=== PATIENT | female | born 1960 | race African-American/Black ===

== ENCOUNTER 2023-11-17 11:27 | Inpatient (IN) | payer OTHER, SELFPAY ==
[2023-11-17] MEDS ORDERED: Pantoprazole 40 MG VIAL ONE ×2 (12:03→13:35)
[2023-11-17 12:22] LABS: #Basophils 0.03 10x3/uL (0.0-0.2); #Eosinphils Less than 0.03 10x3/uL (0.0-0.7); %Basophils 0.3 % (0.0-1.0); %Eosinophils 0.2 % (0.0-10.0); %Lymphocytes 17.6 % (21.0-51.0); %Monocytes 5.2 % (0.0-10.0); %Neutrophils 76.3 % (42.0-75.0); Hematocrit 42.9 % (36.0-47.0); Hemoglobin 14.4 g/dL (12.0-16.0); Mean Corpuscular HGB CONC 33.6 g/dL (32.0-36.0); Mean Corpuscular Hemoglobin 31.6 pg (27.0-31.0); Mean Corpuscular Volume 94.1 fL (78.0-98.0); Mean Platelet Volume 9.5 fL (7.4-10.4); Platelet Count 280 10x3/uL (130-400); RBC Distribution Width 13.8 % (11.5-14.5); Red Blood Cell (RBC) Count 4.56 mill/uL (4.20-5.40)
[2023-11-17] MEDS ORDERED: Iopamidol-370 76% 500 ML MDV (1 ML CHARGE) ONE (12:25)
[2023-11-17 12:31] LABS: ALT (SGPT) 15 U/L (8-55); AST (SGOT) 21 U/L (5-34); Albumin 4.2 g/dL (3.4-4.8); Alkaline Phosphatase 57 U/L (40-110); Anion Gap 15 mmol/L (10-20); BUN (Urea Nitrogen) 11 mg/dL (9.8-20.1); Bilirubin, Total 0.5 mg/dL (0.2-1.2); Calc. Creatinine Clearance 0 mL/min (70-130); Calcium 9.6 mg/dL (7.8-10.44); Carbon Dioxide 24 mmol/L (23-31); Chloride 106 mmol/L (98-107); Estimated GFR 57; Globulin 3.6 g/dL (2.4-3.5); Glucose 131 mg/dL (80-115); Potassium 3.5 mmol/L (3.5-5.1); Protein, Total 7.8 g/dL (5.8-8.1); Sodium 141 mmol/L (136-145)
[2023-11-17 12:46] LABS: INR-International Normal Ratio 1.1; Prothrombin Time 14.6 sec (12.0-14.7)
[2023-11-17 12:47] LABS: PTT 33.2 sec (22.9-36.1)
[2023-11-17] MEDS ORDERED: cefTRIAXone (ROCEPHIN) 1 GM VIAL ONE (13:43)
[2023-11-17] MEDS ORDERED: Sodium Chloride 0.9% 100 ML ONE ×2 (13:43→15:55)
[2023-11-17] MEDS ORDERED: Octreotide Acetate 500 MCG/ML VIAL ONE (13:43)
[2023-11-17] MEDS ORDERED: hydrALAZINE 20 MG/ML VIAL ONE ×2 (13:54→17:17)
[2023-11-17] MEDS ORDERED: Octreotide Acetate 1,250 MCG in Sodium Chloride 0.9% 250 ML 250 ML IVPB SCH (14:00)
[2023-11-17 14:42] LABS: Bacteria/HPF None Seen HPF (None Seen); Bilirubin Negative (Negative); Blood, Urine Negative (Negative); CAUTI Indications for Culture Dysuria,urgency,freq; Clarity Clear (Clear); Glucose, Urine (Dipstick) Normal (Negative); Ketone, Urine Negative (Negative); Leukocyte 25 Leu/uL (Negative); Nitrite Negative (Negative); Protein, Urine (Dipstick) 30 mg/dL (Neg-Trace); RBC/HPF 0-3 HPF (0-3); Specific Gravity, Urine 1.042 (1.002-1.036); Urobilinogen Normal mg/dL (Less than 2); pH, Urine 6.5 (5.0-9.0)
[2023-11-17 14:46] LABS: Urine Culture Reflex No No
[2023-11-17] MEDS ORDERED: Piperacillin/Tazobactam 4.5 GM VIAL ONE (15:54)
[2023-11-17 16:14] LABS: ALT (SGPT) 15 U/L (8-55); AST (SGOT) 20 U/L (5-34); Albumin 4.3 g/dL (3.4-4.8); Alkaline Phosphatase 59 U/L (40-110); Bilirubin, Direct 0.2 mg/dL (0.1-0.3); Bilirubin, Total 0.5 mg/dL (0.2-1.2); Protein, Total 7.5 g/dL (5.8-8.1)
[2023-11-17] MEDS ORDERED: Piperacillin/Tazobactam 3.375 GM in Sodium Chloride 0.9% 100 ML IVPB SCH (16:15)
[2023-11-17 17:36] LABS: Hep C IgG Ab Reflex HepC Qnt S/CO (NonReactive); Hep C Index 11.37 S/CO (0-0.79)
[2023-11-17 20:28] LABS: Hemoglobin 13.2 g/dL (12.0-16.0)
[2023-11-17 20:55] LABS: Lactic Acid 6.6 mmol/L (0.5-2.2)
[2023-11-17] MEDS: Acetaminophen 325 MG TAB PO SCH (21:04)
[2023-11-17] MEDS: Sodium Chloride 0.9% 1,000 ML IV SCH (21:06)
[2023-11-17] MEDS: Piperacillin/Tazobactam 3.375 GM in Sodium Chloride 0.9% 100 ML IVPB SCH (21:07)
[2023-11-17] MEDS: Pantoprazole DR 40 MG TAB PO SCH (21:08)
[2023-11-17] MEDS: Nicotine 14 MG PATCH TD SCH (21:40)
[2023-11-17 21:46] VITALS: BMI 20.7
[2023-11-17] MEDS: hydrALAZINE 20 MG/ML VIAL SLOW IVP PRN (23:39)
[2023-11-18 03:58] LABS: #Basophils 0.06 10x3/uL (0.0-0.2); %Basophils 0.6 % (0.0-1.0); %Lymphocytes 44.1 % (21.0-51.0); %Monocytes 5.8 % (0.0-10.0); %Neutrophils 46.3 % (42.0-75.0); Hematocrit 38.4 % (36.0-47.0); Hemoglobin 13.2 g/dL (12.0-16.0); Mean Corpuscular HGB CONC 34.4 g/dL (32.0-36.0); Mean Corpuscular Hemoglobin 32.2 pg (27.0-31.0); Mean Corpuscular Volume 93.7 fL (78.0-98.0); Mean Platelet Volume 9.2 fL (7.4-10.4); Platelet Count 234 10x3/uL (130-400)
[2023-11-18 05:12] LABS: Lactic Acid 1.6 mmol/L (0.5-2.2)
[2023-11-18 05:14] LABS: Anion Gap 12 mmol/L (10-20); BUN (Urea Nitrogen) 7 mg/dL (9.8-20.1); Calc. Creatinine Clearance 62 mL/min (70-130); Calcium 8.3 mg/dL (7.8-10.44); Carbon Dioxide 19 mmol/L (23-31); Chloride 113 mmol/L (98-107); Estimated GFR 76; Glucose 125 mg/dL (80-115); Potassium 3.2 mmol/L (3.5-5.1); Sodium 141 mmol/L (136-145)
[2023-11-18] MEDS: Lactated Ringer's 1,000 ML IV SCH (05:54)
[2023-11-18 08:00] VITALS: BMI 20.7
[2023-11-18] MEDS: Lisinopril 5 MG TAB PO SCH (08:42)
[2023-11-18 10:33] LABS: Hematocrit 37.1 % (36.0-47.0); Hemoglobin 12.4 g/dL (12.0-16.0)
[2023-11-18] MEDS ORDERED: Famotidine 20 MG TAB PO PRN (10:40)
[2023-11-18 10:52] LABS: Lactic Acid 3.5 mmol/L (0.5-2.2)
[2023-11-18] MEDS: Hydrochlorothiazide 25 MG TAB PO SCH (12:37)
[2023-11-18] MEDS: Sodium Chloride 0.45% 1,000 ML IV SCH (12:37)
[2023-11-18] MEDS: hydrALAZINE 20 MG/ML VIAL SLOW IVP PRN (17:31)
[2023-11-18] MEDS: traMADol HCl 50 MG TAB PO PRN (18:39)
[2023-11-19 06:07] LABS: #Basophils 0.05 10x3/uL (0.0-0.2); %Basophils 0.6 % (0.0-1.0); %Eosinophils 5.5 % (0.0-10.0); %Lymphocytes 38.9 % (21.0-51.0); %Monocytes 6.3 % (0.0-10.0); %Neutrophils 48.5 % (42.0-75.0); Hematocrit 38.3 % (36.0-47.0); Hemoglobin 13.1 g/dL (12.0-16.0); Mean Corpuscular HGB CONC 34.2 g/dL (32.0-36.0); Mean Corpuscular Volume 93.4 fL (78.0-98.0); Mean Platelet Volume 9.4 fL (7.4-10.4); Platelet Count 240 10x3/uL (130-400); RBC Distribution Width 14.1 % (11.5-14.5)
[2023-11-19 06:13] LABS: Lactic Acid 1.3 mmol/L (0.5-2.2)
[2023-11-19 06:18] LABS: Anion Gap 12 mmol/L (10-20); BUN (Urea Nitrogen) 4 mg/dL (9.8-20.1); Calc. Creatinine Clearance 71 mL/min (70-130); Calcium 8.5 mg/dL (7.8-10.44); Carbon Dioxide 20 mmol/L (23-31); Chloride 111 mmol/L (98-107); Estimated GFR 90; Glucose 102 mg/dL (80-115); Potassium 2.8 mmol/L (3.5-5.1); Sodium 140 mmol/L (136-145)
[2023-11-19] MEDS ORDERED: Electrolyte Replacement Protocol 1 EACH FS SCH (07:43)
[2023-11-19] MEDS: Potassium Chloride 20 MEQ TAB PO SCH ×2 (08:16→09:24)
[2023-11-19] MEDS: Lisinopril 20 MG TAB PO SCH (08:16)
[2023-11-19] MEDS: Hydrochlorothiazide 25 MG TAB PO SCH ×2 (08:16→18:11)
[2023-11-19] MEDS ORDERED: Hydrochlorothiazide 25 MG TAB PO SCH (09:00)
[2023-11-19 18:02] VITALS: BP 151/75; TEMP 98.8
[2023-11-19 19:10] LABS: Potassium 3.5 mmol/L (3.5-5.1)
[2023-11-19] MEDS ORDERED: Potassium Chloride 20 MEQ TAB PO SCH (19:55)
[2023-11-21 10:19] LABS: Hep C PCR-Quant HCV Not Detected IU/mL (.)
== END 2023-11-19 19:55 | disposition home or self-care (01) | DRG 394 ==
LOC: ERS 11:27 → ERHOLD 15:06 → T4-B 19:02
PROVIDERS: ADMIT Internal Medicine; ATTEND Internal Medicine
DX: K55.039 Acute (reversible) ischemia of large intestine, extent unspecified (principal); E87.20 Acidosis, unspecified; K92.2 Gastrointestinal hemorrhage, unspecified; Z66 Do not resuscitate; E87.6 Hypokalemia; I10 Essential (primary) hypertension; F17.210 Nicotine dependence, cigarettes, uncomplicated; N32.89 Other specified disorders of bladder; Z79.82 Long term (current) use of aspirin; Z79.899 Other long term (current) drug therapy
CPT/HCPCS: 36415; 36416; 74177; 80048; 80053; 81001; 82274; 83605; 85025; 85610; 85730; 86803; 86850; 86900; 86901; 87040; 87522; 93005; C9113; J0360; J0696; J2354; J2543; J3490; J7050; J7120; Q9967

== ENCOUNTER 2024-04-11 09:58 | Emergency (ER) | payer OTHER, SELFPAY ==
[2024-04-11 12:53] LABS: #Basophils 0.04 10x3/uL (0.0-0.2); %Basophils 0.5 % (0.0-1.0); %Eosinophils 1.4 % (0.0-10.0); %Lymphocytes 26.6 % (21.0-51.0); %Monocytes 5.1 % (0.0-10.0); %Neutrophils 66.1 % (42.0-75.0); Hematocrit 38.1 % (36.0-47.0); Mean Corpuscular HGB CONC 34.1 g/dL (32.0-36.0); Mean Corpuscular Hemoglobin 31.6 pg (27.0-31.0); Mean Corpuscular Volume 92.7 fL (78.0-98.0); Platelet Count 266 10x3/uL (130-400); RBC Distribution Width 13.5 % (11.5-14.5); Red Blood Cell (RBC) Count 4.11 mill/uL (4.20-5.40)
[2024-04-11 13:22] LABS: Acetaminophen Less than 10 mcg/mL (Less than 10); Alcohol Less than 10.0 mg/dL (Less than 10); Salicylate Less than 8.0 mg/dL (Less than 8.0)
[2024-04-11 13:23] LABS: Troponin I Less than 0.010 ng/mL (< 0.028)
[2024-04-11 13:31] LABS: Amphetamine Not Detected (NotDetected); Barbiturates Screen Not Detected (NotDetected); Benzodiazepine Screen Not Detected (NotDetected); Cocaine Metabolite Screen Detected (NotDetected); Methadone Not Detected (NotDetected); Methamphetamine Not Detected (NotDetected); Opiate Screen Not Detected (NotDetected); Oxycodone Screen Not Detected (NotDetected); Phencyclidine (PCP) Not Detected (NotDetected); THC/Cannabinoid Screen Detected (NotDetected); Tricyclic Screen Not Detected (NotDetected)
[2024-04-11] MEDS ORDERED: Boostrix 0.5 ML (Tdap) VIAL (>/=7 yrs of age) ONE (14:36)
[2024-04-11] MEDS ORDERED: Triple Antibiotic Oint 1 GM Packet ONE (14:36)
[2024-04-11 15:05] LABS: ALT (SGPT) 14 U/L (8-55); AST (SGOT) 19 U/L (5-34); Albumin 3.6 g/dL (3.4-4.8); Alkaline Phosphatase 53 U/L (40-110); Anion Gap 13 mmol/L (10-20); BUN (Urea Nitrogen) 13 mg/dL (9.8-20.1); Bilirubin, Total 0.2 mg/dL (0.2-1.2); Calc. Creatinine Clearance 0 mL/min (70-130); Calcium 8.9 mg/dL (7.8-10.44); Carbon Dioxide 22 mmol/L (23-31); Chloride 107 mmol/L (98-107); Estimated GFR 77; Globulin 3.1 g/dL (2.4-3.5); Glucose 142 mg/dL (80-115); Potassium 3.6 mmol/L (3.5-5.1); Protein, Total 6.7 g/dL (5.8-8.1); Sodium 138 mmol/L (136-145)
== END 2024-04-11 15:33 | disposition home or self-care (01) ==
LOC: ERS 09:58
DX: S80.212A Abrasion, left knee, initial encounter (principal); F19.10 Other psychoactive substance abuse, uncomplicated; R00.1 Bradycardia, unspecified; I10 Essential (primary) hypertension; F17.210 Nicotine dependence, cigarettes, uncomplicated; Z23 Encounter for immunization; W01.0XXA Fall on same level from slipping, tripping and stumbling without subsequent striking against object, initial encounter
CPT/HCPCS: 36415; 70450; 71045; 72125; 80053; 80306; 80307; 83880; 84484; 85025; 90471; 90715; 93005